=== PATIENT | female | born 1970 | race Caucasian/White ===

== ENCOUNTER 2017-01-27 10:40 | Emergency (ER) | payer BC ==
[~2017-01-27] VITALS: Ht 152.4 cm; Wt 65.1 kg
[2017-01-27 10:46] VITALS: Ht 152.4 cm; Wt 65.1 kg
[2017-01-27] MEDS ORDERED: SOD CHLORIDE 0.9% 1,000 ML IV STA ×2 (11:10→12:56)
[2017-01-27] MEDS ORDERED: KETOROLAC 30 MG INJ IV STA (11:10)
[2017-01-27 11:17] LABS: ADD SCAN DIFF NO
[2017-01-27 11:22] LABS: BASOPHILS % 0.2 % (0.0-2.0); EOSINOPHILS % 0.1 % (0.0-7.0); HEMATOCRIT 39.3 % (37.0-47.0); HEMOGLOBIN 13.3 g/dl (12.0-16.0); LYMPHOCYTES # 1.6 10^3/ul (0.8-2.9); LYMPHOCYTES % 15.5 % (15.0-51.0); MEAN CORPUSCULAR HEMOGLOBIN 28.2 pg (29.0-33.0); MEAN CORPUSCULAR HGB CONC 33.8 g/dl (32.0-37.0); MEAN CORPUSCULAR VOLUME 83.3 fl (82.0-101.0); MEAN PLATELET VOLUME 9.1 fl (7.4-10.4); MONOCYTE # 0.9 10^3/ul (0.3-0.9); NEUTROPHIL # 7.5 10^3/ul (1.6-7.5); NEUTROPHILS % 74.9 % (39.0-77.0); PLATELET COUNT 171 10^3/UL (140-415); RED BLOOD COUNT 4.72 10^6/ul (4.20-5.40); RED CELL DISTRIBUTION WIDTH 12.8 % (11.5-14.5)
[2017-01-27 11:33] LABS: ALBUMIN 4.4 g/dl (3.3-4.9); POTASSIUM 4.2 mmol/L (3.5-5.1)
[2017-01-27 11:35] LABS: CREATININE 0.63 mg/dl (0.44-1.00)
[2017-01-27 11:36] LABS: BILIRUBIN,INDIRECT 0.6 mg/dl (0-1.1); BILIRUBIN,TOTAL 0.6 mg/dl (0.2-1.3); CALCIUM 10.1 mg/dl (8.4-10.2); TOTAL PROTEIN 8.8 g/dl (6.1-8.1)
[2017-01-27] MEDS ORDERED: ONDANSETRON 4 MG INJ IV STA ×2 (11:47→13:55)
[2017-01-27] MEDS ORDERED: morphine 2 MG INJ IV STA ×2 (11:47→13:55)
--- NOTE | 2017-01-27 11:57 | RADRPT ---
PROCEDURE: XR Chest. CLINICAL INDICATION: chest pain, abdominal pain TECHNIQUE: Single frontal view of the chest was obtained COMPARISON: 07/21/2013 FINDINGS: The heart and mediastinum are within normal limits. The lungs are clear. There is no pleural effusion or pneumothorax. RPTAT: AA IMPRESSION: No acute disease. .Jordy Gaspar MD, MD Date Time Electronically viewed and signed by .Jordy Gaspar MD, MD on 01/27/2017 11:56 .S/
[2017-01-27] MEDS ORDERED: DEXAMETHASONE 10 MG/ML 1 ML INJ IV ONE (12:00)
[2017-01-27 13:38] VITALS: BP 114/67; PULSE 92; RESP 22; TEMP 99.6
--- NOTE | 2017-01-27 14:27 | ERD ---
ER Documentation Chief Complaint Date/Time DATE: 01/27/17 TIME: 14:[address],body aches HPI This is a 46-year-old female with no past medical history that presents to the emergency department complaining of a sudden onset of a sore throat, generalized myalgias and body aches with a tactile fever shaking and chills that began roughly 12 hours prior to arrival. The patient works at [employer] [employer] has had multiple sick contacts. She denies a headache or changes in vision at this time. The patient took NyQuil and TheraFlu at roughly 10 hours prior to arrival. The patient denies any hemoptysis hematemesis or melanotic stools. She denies any recent travel. She has no shortness of breath at rest or exertion. She denies any frequency urgency or dysuria. She has had a decrease in appetite. She has no chest pain or pressure that radiates to the neck arm back or jaw. She denies a productive or nonproductive cough ROS All systems reviewed and are negative except as per history of present illness. Medications Home Meds Active Scripts Azithromycin* (Zithromax*) 250 Mg Tablet, 250 MG PO .ZPACK DIRECTED, #6 TAB TAKE 500 MG (2 TABS) THE FIRST DAY THEN 250 MG (1 TAB) DAYS 2-5 Prov:ZORA FRANCIS 01/27/17 Ibuprofen* (Motrin*) 600 Mg Tab, 600 MG PO Q8, #30 TAB Prov:ZORA FRANCIS 01/27/17 Oseltamivir Phosphate* (Tamiflu*) 75 Mg Capsule, 75 MG PO BID for 5 Days, CAP Prov:ZORA FRANCIS 01/27/17 Acetaminophen-Codeine* (Tylenol-Codeine* Liq) [id number] Elix, 15 ML PO Q6H Y for PAIN, #8 OZ Prov:ZORA FRANCIS 01/27/17 Allergies Allergies: Coded Allergies: No Known Allergy (Unverified , 01/27/17) PMhx/Soc History of Surgery: Yes (THYROID) Anesthesia Reaction: No Hx Neurological Disorder: No Hx Respiratory Disorders: No Hx Cardiac Disorders: No Hx Psychiatric Problems: No Hx Miscellaneous Medical Probl: Yes (arthritis, blood in urine, migraine) Hx Alcohol Use: No Hx Substance Use: No Hx Tobacco Use: No Smoking Status: Never smoker Physical Exam Vitals Vital Signs Date Time Temp Pulse Resp B/P Pulse Ox O2 Delivery O2 Flow Rate FiO2 01/27/17 13:38 99.6 92 22 114/67 98 Room Air 01/27/17 10:46 99.1 121 20 135/81 99 Physical Exam Constitutional:Well-developed. Well-nourished. HEENT:Normocephalic. Atraumatic.Pupils were equal round reactive to light. Dry mucous membranes.No tonsillar exudates however erythremia both tonsils and uvula was midline Neck: No nuchal rigidity. No lymphadenopathy. No posterior cervical spine tenderness or step-offs. Respiratory: Not using accessory muscles of respiration.Lungs were clear to auscultation bilaterally. No rhonchi. No rales. No wheezing. Cardiovascular: Regular rate regular rhythm.No murmurs. No rubs were appreciated.S1, S2 normal. Distal pulses are palpable 2+ bilaterally. GI: Abdomen was soft. Nontender. Non Distended. No pulsatile abdominal masses or bruits. No rebound. No guarding. Bowel sounds were present and normal. Muscle skeletal: Full range of motion of both the upper and lower extremities bilaterally.Normal muscle tone.No assymetrical calf tenderness or swelling. Skin: No petechia, no purpura. No lesions on the palms or the soles of the feet. No maculopapular rash. NEURO: Patient was alert, awake, orientated x3.No facial droop. Gait observed and normal with no ataxia.Speech had regular rate and rhythm. No focal neurological deficits. Result Diagram: 01/27/17 1110 01/27/17 1110 Results 24 hrs Laboratory Tests Test 01/27/17 11:10 Alanine Aminotransferase (ALT/SGPT) 29IU/L Albumin 4.4g/dl Albumin/Globulin Ratio 1.00 Alkaline Phosphatase 75IU/L Anion Gap 17 Aspartate Amino Transf (AST/SGOT) 15IU/L Basophils # 0.010^3/ul Basophils % 0.2% Blood Urea Nitrogen 11mg/dl Calcium Level 10.1mg/dl Carbon Dioxide Level 26mmol/L Chloride Level 104mmol/L Creatinine 0.63mg/dl Direct Bilirubin 0.00mg/dl Eosinophils # 0.010^3/ul Eosinophils % 0.1% Globulin 4.40g/dl Glucose Level 98mg/dl Hematocrit 39.3% Hemoglobin 13.3g/dl Indirect Bilirubin 0.6mg/dl Lymphocytes # 1.610^3/ul Lymphocytes % 15.5% Mean Corpuscular Hemoglobin 28.2pg Mean Corpuscular Hemoglobin Concent 33.8g/dl Mean Corpuscular Volume 83.3fl Mean Platelet Volume 9.1fl Monocytes # 0.910^3/ul Monocytes % 9.0% Neutrophils # 7.510^3/ul Neutrophils % 74.9% Nucleated Red Blood Cells # 0.010^3/ul Nucleated Red Blood Cells % 0.0/100WBC Platelet Count 62215^3/UL Potassium Level 4.2mmol/L Red Blood Count 4.7210^6/ul Red Cell Distribution Width 12.8% Sodium Level 143mmol/L Total Bilirubin 0.6mg/dl Total Protein 8.8g/dl White Blood Count 10.010^3/ul Current Medications Medications (Trade) Dose Ordered Sig/Sofia Route PRN Reason Start Time Stop Time Status Last Admin Dose Admin Sodium Chloride (NS) 1,000 ml @ 1,000 mls/hr Q1H STAT IV 01/27/17 11:10 01/27/17 12:09 DC 01/27/17 12:12 Ketorolac Tromethamine (Toradol) 30 mg ONCE STAT IV 01/27/17 11:10 01/27/17 11:13 DC 01/27/17 12:16 Dexamethasone (Decadron) 10 mg ONCE ONCE IV 01/27/17 12:00 01/27/17 12:01 DC 01/27/17 12:15 Morphine Sulfate (morphine) 2 mg ONCE STAT IV 01/27/17 11:47 01/27/17 11:54 DC 01/27/17 12:16 Ondansetron HCl 4 mg 4 mg ONCE STAT IV 01/27/17 11:47 01/27/17 11:54 DC 01/27/17 12:16 Sodium Chloride (NS) 1,000 ml @ 1,000 mls/hr Q1H STAT IV 01/27/17 12:56 01/27/17 13:55 DC 01/27/17 13:38 Morphine Sulfate (morphine) 2 mg ONCE STAT IV 01/27/17 13:55 01/27/17 13:56 DC Ondansetron HCl (Zofran Inj) 4 mg ONCE STAT IV 01/27/17 13:55 01/27/17 13:56 DC Oseltamivir Phosphate (Tamiflu) 75 mg ONCE ONCE PO 01/27/17 14:30 01/27/17 14:31 DC Procedures/MDM This patient presented to the emergency department with flulike symptoms. She was afebrile in the emergency department but did have clinical dehydration. She received a liter bolus of 0.9 normal saline. I obtained influenza swabs and strep swabs which were negative. She had no leukocytosis or electrolyte abnormalities. 12 Lead EKG tracing ordered and reviewed by myself showed: Sinus tachycardia 106 bpm and no arrhythmia. IN interval normal. QRS duration normal. No ST segment elevation No ST segment depression. No changes consistent with acute ischemia. Observation Note: Time: 4 hours Family Hx: No Hypertension Evaluation: Multiple exams showed improving symptoms and no evidence of airway compromise agent such as Shahid's angina. The patient received Decadron and she was complaining of dysphagia. There is no pooling of secretions within the oropharynx, no brawny induration and no trismus. Given that her symptoms have been present for roughly 12 hours I did administer Tamiflu and the patient was comfortable being discharged home with a prescription of Tamiflu on prophylactic antibiotics to prevent secondary bacterial infection that could result in strep pharyngitis. Also felt it was necessary to obtain a chest radiograph to rule out pneumonia given that the patient currently works in the hospital with multiple sick contacts. The chest radiograph reviewed by myself showed no infiltrates no pneumothorax or pleural effusions Departure Diagnosis: Primary Impression: Pharyngitis, acute Pharyngitis/tonsillitis etiology: unspecified etiology Qualified Code: J02.9 - Acute pharyngitis, unspecified etiology Additional Impression: Flu-like symptoms Condition: ZORA Thomason Jan 27, 2017 14:27
[2017-01-27] MEDS ORDERED: OSELTAMIVIR 75 MG CAP PO ONE (14:30)
[2017-01-27] MEDS ORDERED: AZIT250T94 PO (14:37)
[2017-01-27] MEDS ORDERED: UDTYLC PO (14:37)
[2017-01-27] MEDS ORDERED: OSLT75C PO (14:37)
[2017-01-27] MEDS ORDERED: IBUP-1542 PO (14:37)
== END 2017-01-27 16:00 | disposition home or self-care (01) ==
LOC: E/R 10:40
DX: J02.9 Acute pharyngitis, unspecified (principal); M79.1 Myalgia; R50.9 Fever, unspecified; R07.9 Chest pain, unspecified
CPT/HCPCS: 71010; 80053; 85025; 87400; 87880; 93005; 96361; 96374; 96375; 96376; 99285; J1100; J1885; J2270; J2405; J7030

== ENCOUNTER 2017-08-22 09:08 | Emergency (ER) | payer BC ==
[~2017-08-22] VITALS: Ht 147.3 cm; Wt 63.0 kg
[~2017-08-22 09:08] MED LIST: AZIT250T94 PO; IBUP-1542 PO; OSLT75C PO; UDTYLC PO
[2017-08-22 09:10] VITALS: Ht 147.3 cm; Wt 63.0 kg
[2017-08-22] MEDS ORDERED: IBUP800T25 PO (10:14)
[2017-08-22] MEDS ORDERED: CEPH500C PO (10:14)
[2017-08-22] MEDS ORDERED: HYDR-906 PO (10:14)
--- NOTE | 2017-08-22 10:16 | ERD ---
ER Documentation Chief Complaint Date/Time DATE: 08/22/17 TIME: 10:15 Chief Complaint pt bib family with c/o left great toe pain and swelling unk cause HPI This is a 47-year-old female complains of left great toe pain located at the medial aspect of the distal toenail with redness and swelling and pain described as sharp worse with movement and standing. Better with rest. No fever. The patient picks her toenails. This been going on for the past 7-10 days. ROS All systems reviewed and are negative except as per history of present illness. Medications Home Meds Active Scripts Hydrocodone/Acetaminophen ([place] 5-325 Tablet) 1 Each Tablet, 1 TAB PO Q6H Y for PAIN, #20 TAB Prov:JULIAN GAGES A. DO 08/22/17 Ibuprofen* (Motrin*) 800 Mg Tab, 800 MG PO Q6H Y for PAIN AND OR ELEVATED TEMP, #30 TAB Prov:REJI GAGESTOLOS A. DO 08/22/17 Cephalexin* (Cephalexin*) 500 Mg Capsule, 500 MG PO Q8, #21 CAP Prov:REJI GAGESTOLOS A. DO 08/22/17 Azithromycin* (Zithromax*) 250 Mg Tablet, 250 MG PO .ZPACK DIRECTED, #6 TAB TAKE 500 MG (2 TABS) THE FIRST DAY THEN 250 MG (1 TAB) DAYS 2-5 Prov:ZORA FRANCIS 01/27/17 Ibuprofen* (Motrin*) 600 Mg Tab, 600 MG PO Q8, #30 TAB Prov:ZORA FRANCIS 01/27/17 Oseltamivir Phosphate* (Tamiflu*) 75 Mg Capsule, 75 MG PO BID for 5 Days, CAP Prov:ZORA FRANCIS 01/27/17 Acetaminophen-Codeine* (Tylenol-Codeine* Liq) [id number] Elix, 15 ML PO Q6H Y for PAIN, #8 OZ Prov:ZORA FRANCIS 01/27/17 Allergies Allergies: Coded Allergies: No Known Allergy (Unverified , 08/22/17) PMhx/Soc History of Surgery: Yes (THYROID) Anesthesia Reaction: No Hx Neurological Disorder: No Hx Respiratory Disorders: No Hx Cardiac Disorders: No Hx Psychiatric Problems: No Hx Miscellaneous Medical Probl: Yes (arthritis, blood in urine, migraine) Hx Alcohol Use: No Hx Substance Use: No Hx Tobacco Use: No Smoking Status: Never smoker FmHx Family History: No coronary disease Physical Exam Vitals Vital Signs Date Time Temp Pulse Resp B/P Pulse Ox O2 Delivery O2 Flow Rate FiO2 08/22/17 09:10 98.9 90 18 152/95 99 Physical Exam Const: Well-developed, well-nourished Head: Atraumatic, normocephalic Eyes: Normal Conjunctiva, PERRLA, EOMI, normal sclera, no nystagmus ENT: Normal External Ears, Nose and Mouth, moist mucus membranes. Neck: Full range of motion. No meningismus, no lymphadenopathy. Resp: Clear to auscultation bilaterally, no wheezing, rhonchi, rales Cardio: Regular rate and rhythm, no murmurs, S1 S2 present Abd: Soft, non tender x 4, non distended. Normal bowel sounds, no guarding or rebound, no pulsitile abdominal masses or bruits Skin: No petechiae or rashes, no ecchymosis , no maculopapular rash Back: No midline or flank tenderness Ext: No cyanosis, or edema, FROM x 4, normal inspection, neurovascularly intact x 4, left distal great toe and medial aspect with an ingrown toenail with some erythema and swelling with no pus representing ingrown toenail Neur: Awake and alert, STR 5/5 x 4, sensation intact x 4, no focal findings, cerebellum intact Psych: Normal Mood and Affect Procedures/MDM Her home care with sits baths soaks to the toe Departure Diagnosis: Primary Impression: Ingrown toenail Condition: Stable Patient Instructions: Ingrown Toenail, Infected (Abx Only) TAMI GAGE DO Aug 22, 2017 10:16
== END 2017-08-22 10:29 | disposition home or self-care (01) ==
LOC: FTE 09:08
DX: L60.0 Ingrowing nail (principal)
CPT/HCPCS: 99284

== ENCOUNTER 2018-07-19 09:11 | Emergency (ER) | END 2018-07-19 09:32 | disposition home or self-care (01) ==

== ENCOUNTER 2019-06-17 07:00 | Emergency (ER) | payer BC ==
[~2019-06-17] VITALS: Ht 152.4 cm; Wt 66.3 kg
[~2019-06-17 07:00] MED LIST changes: +AZIT250T PO; -AZIT250T94 PO; +BEN25 PO; +CEPH500C PO; +FAMO-96 PO; +HYDR-4011 PO; +HYDR-842 PO; +IBUP800T48 PO; +OSEL75CA23 PO; -OSLT75C PO
[2019-06-17 07:05] VITALS: BP 152/68; PULSE 94; RESP 20; Ht 152.4 cm; Wt 66.3 kg
--- NOTE | 2019-06-17 07:44 | ERD ---
ER Documentation Chief Complaint Chief Complaint c/o redness on neck area and torso from mosquito bite. poss aller reaction HPI 48-year-old female with no past medical history who presents with complaint of mosquito bites to neck back and lower extremities. Has had worsening itching and pain to the affected areas. She otherwise denies fevers, chills, or any other concerning symptoms. Has tried Benadryl as well as some topical creams to help with symptoms which have not helped much. She otherwise without complaint. Denies any respiratory symptoms, lip or tongue swelling. ROS All systems reviewed and are negative except as per history of present illness. Medications Home Meds Active Scripts Diphenhydramine Hcl* (Benadryl*) 25 Mg Cap, 25 MG PO Q6 PRN for ITCHING/RASH, #30 TAB Prov:CRAIG GARZON PA-C 06/17/19 Famotidine* (Pepcid*) 20 Mg Tablet, 20 MG PO BID for 4 Days, TAB Prov:CRAIG GARZON PA-C 06/17/19 Hydroxyzine Hcl* (Atarax*) 25 Mg Tab, 25 MG PO BID PRN for ITCHING, #20 TAB Prov:SMITH HICKMAN MD 07/19/18 Hydrocodone/Acetaminophen ([place] 5-325 Tablet) 1 Each Tablet, 1 TAB PO Q6H PRN for PAIN, #20 TAB Prov:TAMI GAGE DO 08/22/17 Ibuprofen* (Motrin*) 800 Mg Tab, 800 MG PO Q6H PRN for PAIN AND OR ELEVATED TEMP, #30 TAB Prov:TAMI GAGE DO 08/22/17 Cephalexin* (Cephalexin*) 500 Mg Capsule, 500 MG PO Q8, #21 CAP Prov:TAMI GAGE DO 08/22/17 Azithromycin* (Zithromax*) 250 Mg Tablet, 250 MG PO .JOSSIE DIRECTED, #6 TAB TAKE 500 MG (2 TABS) THE FIRST DAY THEN 250 MG (1 TAB) DAYS 2-5 Prov:ZORA FRANCIS MD 01/27/17 Ibuprofen* (Motrin*) 600 Mg Tab, 600 MG PO Q8, #30 TAB Prov:ZORA FRANCIS MD 3/2/17 Oseltamivir Phosphate* (Tamiflu*) 75 Mg Capsule, 75 MG PO BID for 5 Days, CAP Prov:ZORA FRANCIS MD 01/27/17 Acetaminophen-Codeine* (Tylenol-Codeine* Liq) [id number] Elix, 15 ML PO Q6H PRN for PAIN, #8 OZ Prov:ZORA FRANCIS MD 01/27/17 Allergies Allergies: Coded Allergies: No Known Allergy (Unverified , 08/22/17) PMhx/Soc History of Surgery: Yes (THYROID) Anesthesia Reaction: No Hx Neurological Disorder: Yes (MIGRAINE) Hx Respiratory Disorders: No Hx Cardiac Disorders: No Hx Psychiatric Problems: No Hx Miscellaneous Medical Probl: Yes (arthritis, blood in urine, migraine) Hx Alcohol Use: No Hx Substance Use: No Hx Tobacco Use: No FmHx Family History: No diabetes, No coronary disease, No other Physical Exam Vitals Vital Signs Date Temp Pulse Resp B/P (MAP) Pulse Ox O2 O2 Flow FiO2 Time Delivery Rate 06/17/19 97.8 94 20 152/68 99 07:05 (96) Physical Exam Const: No acute distress Head: Atraumatic Eyes: Normal Conjunctiva ENT: Normal External Ears, Nose and Mouth. Neck: Full range of motion. No meningismus. Resp: Clear to auscultation bilaterally Cardio: Regular rate and rhythm, no murmurs Abd: Soft, non tender, non distended. Normal bowel sounds Skin: Small raised areas of erythema, tender to touch on neck upper back and left lower extremity Back: No midline or flank tenderness Ext: No cyanosis, or edema Neur: Awake and alert Psych: Normal Mood and Affect Procedures/MDM 48-year-old female presents with insect bite. No sites appear infected patient afebrile. I have low suspicion for any acute allergic reaction process warranting further emergent care or work-up. Will add H2 nicholas to course and advised patient to continue taking Benadryl. Also recommend that she has her home fumigated for mosquitoes given recurrent mosquito bites. DISPOSITION PLAN: We discussed follow up with the patient's primary care doctor within 24 to 48 hours. Patient counseled regarding my diagnostic impression and care plan. Prior to discharge all questions answered. Pt agrees with treatment plan and understands strict return precautions. Precautionary instructions provided including instructions to return to the ER if not improving or for any worsening or changing symptoms or concerns. Disclaimer: Inadvertent spelling and grammatical errors are likely due to EHR/dictation software use and do not reflect on the overall quality of patient care. Also, please note that the electronic time recorded on this note does not necessarily reflect the actual time of the patient encounter. Departure Diagnosis: Primary Impression: Insect bite Condition: Stable Patient Instructions: Mosquito Bite Additional Instructions: Call your primary care doctor TOMORROW for an appointment during the next 2-3 d ays.See the doctor sooner or return here if your condition worsens before your appointment time. CRAIG GARZON PA-C Jun 17, 2019 07:44
[2019-06-17] MEDS ORDERED: FAMOTIDINE 20 MG TAB PO ONE (08:00)
== END 2019-06-17 07:58 | disposition home or self-care (01) ==
LOC: FTE 07:00
DX: S10.96XA Insect bite of unspecified part of neck, initial encounter (principal); S20.469A Insect bite (nonvenomous) of unspecified back wall of thorax, initial encounter; S80.862A Insect bite (nonvenomous), left lower leg, initial encounter; W57.XXXA Bitten or stung by nonvenomous insect and other nonvenomous arthropods, initial encounter; Y92.9 Unspecified place or not applicable
CPT/HCPCS: 99282